=== PATIENT | female | born 1980 | race African-American/Black ===

== ENCOUNTER 2020-06-09 13:12 | Emergency (ER) | payer OTHER, SELFPAY ==
[2020-06-09 13:15] VITALS: BP 112/62; PULSE 79; TEMP 36.5; O2SAT 100
--- NOTE | 2020-06-09 13:21 | ED.GENADUL_ITS ---
Discharge Plan Disposition Patient Disposition: HOME Condition: Improving Discharge Details Chief Complaint: SutureRem Clinical Impression: Visit for suture removal Primary Care Provider: Jayesh Helms ED Provider: Alvin Oscar Discharge Instructions Additional Instructions: Daily soap and water, pat dry and replace bandage for the next 7 days time. Return to the ER for any acute concerns Medical Decision Making Otherwise healthy 39-year-old female presents for suture removal from right index finger after laceration repair performed May 26. No signs of bacterial infection. Sutures removed uneventfully, normal radiographs, she is stable for discharge HPI General Mode of arrival: ambulatory . Date/Time Provider Initiated Documentation: 06/09/20 13:15 . Limitations to Documentation: no limitations . Information obtained by: patient . History of Present Illness 39 year old F presents to the emergency department with the chief complaint of Suture removal, no other complaint, General Stated Complaint: SutureRem ORAL: 5 Review of Systems Narrative: no Fever/discharge PFSH Social History Smoking/Tobacco Use Status: Never Smoking risk assessment performed?: Yes Do you feel safe at home: Yes Do you feel safe in your relationship?: Yes Exam Narrative Exam Narrative: GEN: awake, alert, oriented 3. Pleasant, well groomed, interactive. HEAD: Normocephalic, atraumatic EXT: Full ROM, next finger with sutures in place, healing laceration. Neuro: Grossly normal neurologic exam, conversant, interactive. Psych: Speech fluent, thoughts congruent, affect normal Course Vital Signs Vital signs: Vital Signs Temperature 36.5 C 06/09/20 13:15 Pulse 79 06/09/20 13:15 Blood Pressure 112/62 06/09/20 13:15 Pulse Oximetry 100 06/09/20 13:15 Temperature 36.5 C 06/09/20 13:15 Temperature Source Temporal Artery Scan 06/09/20 13:15 Pulse 79 06/09/20 13:15 Respiratory Effort Non-Labored 06/09/20 13:17 Blood Pressure 112/62 06/09/20 13:15 Blood Pressure Position Sitting 06/09/20 13:15 Pulse Oximetry 100 06/09/20 13:15 Oxygen Delivery Method Room Air 06/09/20 13:15 Oxygen Flow Rate 0 06/09/20 13:15 Pain Level 0 06/09/20 13:15
== END 2020-06-09 13:23 | disposition home or self-care (01) ==
PROVIDERS: Emergency Provider Emergency Medicine; PCP Nurse Practitioner Family
DX: S61.210D Laceration without foreign body of right index finger without damage to nail, subsequent encounter (principal); W26.8XXD Contact with other sharp object(s), not elsewhere classified, subsequent encounter; Z48.02 Encounter for removal of sutures
CPT/HCPCS: 99282

== ENCOUNTER 2020-07-09 11:50 | Emergency (ER) | payer OTHER, SELFPAY ==
[2020-07-09] VITALS (22 sets, daily range): BP systolic 102–133; BP diastolic 66–81; PULSE 67–97; RESP 11–20; TEMP 36.3; O2SAT 98–100
--- NOTE | 2020-07-09 12:05 | ED.GENADUL_ITS ---
Discharge Plan Disposition Patient Disposition: HOME Condition: Stable Discharge Details Clinical Impression: Sensation of swollen throat Primary Care Provider: Jayesh Helms ED Provider: Doc Presley Home Meds and New Rx's Prescriptions: New prednisone 20 mg tablet 60 mg PO DAILY 5 Days Qty: 15 RF: 0 epinephrine 0.3 mg/0.3 mL auto-injector 0.3 mg IM Q5-15M PRN (Reason: anaphylaxis) Qty: 2 RF: 0 Continued montelukast 10 mg tablet RF: 0 Discharge Instructions Additional Instructions: Your exam and vital signs were stable during your observation here, this is unlikely anaphylaxis if you develop difficulty breathing, abdominal pain, chest pain, vomit or worsening swelling sensation return to the emergency department and use your epi pen Medical Decision Making 39 yo female who has a hx of asthma comes in with feeling as though her throat is swelling. She states she got her second covid19 vaccine around 1120 this morning then after this started to feel a scratchy throat and voice didn't sound like it normally does so came here. States she feels as though there is a lump in the throat. Denies abdominal pain, dyspnea, n/v, chest pain. She has normal posterior pharynx, clear lungs, speaking in full sentences without visible swelling. Given her complaints of feeling swelling in the throat after the vaccine concern for possible anaphylaxis even though she has no diffuse rash, will tx with im epi, benadryl, steroids and famotidine and monitor. pt declined epi and benadryl as well as steroids. She was observed for over an hour and no worsening symptoms and swelling sensation improved, stable exam without drooling and speaking in full sentences. Will d/c with prescriptions for epi pen to have if needed and prednisone and return precautions given Differential Diagnosis Differential Diagnosis: allergic reaction, anaphylaxis HPI General Mode of arrival: ambulatory . Date/Time Provider Initiated Documentation: 07/09/20 11:52 . Limitations to Documentation: no limitations . Information obtained by: patient . History of Present Illness 39 year old F presents to the emergency department with the chief complaint of feels throat swelling, described as moderate, Patient started experiencing this minute(s) (30) and it has been constant. No relieving factors improve symptom(s), No exacerbating factors reported . Patient notes no other symptoms.. Patient did receive the following treatments prior to arrival, none Related Data Home Medications Medication Instructions Recorded Confirmed epinephrine 0.3 mg IM Q5-15M PRN #2 ea 07/09/20 montelukast mg 07/09/20 07/09/20 prednisone 60 mg PO DAILY 5 Days #15 tab 07/09/20 Previous Rx's Medication Instructions Recorded epinephrine 0.3 mg IM Q5-15M PRN #2 ea 07/09/20 prednisone 60 mg PO DAILY 5 Days #15 tab 07/09/20 Allergies Allergy/AdvReac Type Severity Reaction Status Date / Time bee venom protein (honey bee) Allergy Intermediate localized Verified 07/09/20 11:15 swelling/infection diphtheria,pertussis AdvReac Intermediate localized Verified 07/09/20 11:15 (acellular),te swelling [From Boostrix Tdap] and decreased mobility in arm General Stated Complaint: Allergic ORAL: 3 Review of Systems All systems reviewed & are unremarkable except as noted in HPI and below Constitutional Constitutional: Denies chills and Denies fever(s) Cardiovascular Cardiovascular: Denies chest pain and Denies dyspnea Respiratory Respiratory: Denies cough and Denies dyspnea Gastrointestinal Gastrointestinal: Denies abdominal pain, Denies nausea and Denies vomiting [facility] Social History Smoking/Tobacco Use Status: Never Smoking risk assessment performed?: Yes Drug use: Never Substance use type: does not use Do you feel safe at home: Yes Do you feel safe in your relationship?: Yes Exam Const General: no acute distress Orientation: alert HENMT Head: normal to inspection Ears: external ears normal General nose exam: external nose normal Mouth: moist mucous membranes Eyes General: appearance normal, both eyes and all related structures Neck Neck: normal visual inspection Resp Effort & Inspection: normal respiratory effort and able to speak in complete sentences Cardio Rate: regular rate Skin General skin exam: no rashes or lesions noted Neuro General: patient alert and patient oriented x3 Extrem General: normal to inspection Psych Mental Status: mental status grossly normal Course Vital Signs Vital signs: Vital Signs Temperature 36.3 C L 07/09/20 11:55 Pulse 87 07/09/20 11:55 Respiratory Rate 18 07/09/20 11:55 Blood Pressure 133/73 07/09/20 11:55 Pulse Oximetry 100 07/09/20 11:55 Temperature 36.3 C L 07/09/20 11:55 Pulse 87 07/09/20 11:55 Respiratory Rate 18 07/09/20 11:55 Respiratory Effort Non-Labored 07/09/20 12:00 Blood Pressure 133/73 07/09/20 11:55 Blood Pressure Position Sitting 07/09/20 11:55 Pulse Oximetry 100 07/09/20 11:55 Oxygen Delivery Method Room Air 07/09/20 11:55 Oxygen Flow Rate 0 07/09/20 11:55 Pain Level 0 07/09/20 11:55
[2020-07-09] MEDS: FAMOTIDINE 20 MG/50 ML BAG 200 MG IVPB (12:26)
[2020-07-09] MEDS: methylPREDNISolone SUCC 125 MG VIAL IVP (12:26)
== END 2020-07-09 13:52 | disposition home or self-care (01) ==
PROVIDERS: Emergency Provider Emergency Medicine; PCP Nurse Practitioner Family
DX: R09.89 Other specified symptoms and signs involving the circulatory and respiratory systems (principal); T50.Z95A Adverse effect of other vaccines and biological substances, initial encounter; J45.909 Unspecified asthma, uncomplicated
CPT/HCPCS: 96374; 96375; 99284; J2930

== ENCOUNTER 2022-05-18 20:33 | Emergency (ER) | payer OTHER, MEDICAID, SELFPAY ==
[2022-05-18 20:37] VITALS: BP 121/74; PULSE 77; RESP 16; TEMP 36.6; O2SAT 100
[2022-05-18] MEDS: Albuterol/Ipratropium 3 ML UPD VIAL UPD (21:23)
[2022-05-18 21:41] LABS: COVID-19 PCR Negative (Negative); Influenza A PCR Negative (Negative); Influenza B PCR Negative (Negative)
[2022-05-18 21:46] LABS: RSV PCR Positive (Negative); Source Nasopharynx
[2022-05-18] MEDS: Budesonide 0.25 MG/2 ML UPD VIAL UPD (22:00)
--- NOTE | 2022-05-18 22:37 | ED.GENADUL_ITS ---
Discharge Plan Disposition Patient Disposition: Home Condition: Stable Discharge Details Clinical Impression: Respiratory syncytial virus (RSV) infection Primary Care Provider: Jayesh Helms ED Provider: Deng Fabian Home Meds and New Rx's Prescriptions: New benzonatate 200 mg capsule 200 mg PO TID PRN (Reason: cough) Qty: 30 0RF prednisone 20 mg tablet 40 mg PO DAILY Qty: 6 0RF Continued montelukast 10 mg tablet 10 mg PO DAILY Label Comments: TAKE 1 TABLET BY MOUTH ONCE DAILY. epinephrine 0.3 mg/0.3 mL auto-injector 0.3 mg IM Q5-15M PRN (Reason: anaphylaxis) Qty: 2 0RF Rx Instructions: do not exceed 3 doses per episode loratadine 10 mg Tablet 10 mg PO DAILY budesonide-formoterol 160-4.5 mcg/actuation HFA aerosol inhaler 2 inh INHALATION BID Label Comments: INHALE 2 PUFFS BY MOUTH TWICE DAILY Trulance 3 mg tablet 3 mg PO Label Comments: TAKE 1 TABLET BY MOUTH ONCE DAILY fluticasone propionate 50 mcg/actuation spray,suspension 2 spray INTRANASAL BID Label Comments: INSTILL 1 SPRAY IN EACH NOSTRIL DAILY Discharge Instructions Instructions: Respiratory Syncytial Virus (ED) Additional Instructions: Please continue to monitor symptoms and return to the emergency department for any new or significant worsening of your condition. Take steroids starting tomorrow morning and continue with your typical medications for your asthma. If you do not see signs of improvement in the next 5 days please follow-up with your primary care provider for reassessment and further testing or treatment as needed. Referrals: Jayesh Helms [Primary Care Provider] - (If not improving) Discharge Data Discharge Date/Time-TO BE ENTERED AT DEPARTURE: 05/18/22 22:51 Medical Decision Making Patient presenting to the emergency department for chief complaint of cough and chest tightness. Patient has history of severe asthma and has been taking nebulizers. Physical exam shows diminished lung sounds with very subtle wheeze, no hypoxia, no tachycardia and otherwise unremarkable exam. Patient states that he is unable to feel her Pulmicort due to availability at the pharmacy. I do not feel that patient requires imaging or lab work-up at this time but will perform viral pathogen panel and give DuoNeb, Pulmicort, and prednisone initial dose. Viral pathogen panel is positive for RSV. Given the duration of the illness has only been 4 days, patient did have improvement of lung sounds and symptoms after nebs and is RSV positive and I doubt pneumonia at this time and highly suspicious of viral illness with exacerbation of patient's baseline asthma. Will prescribe patient Tessalon Perles and prednisone burst and will encourage patient to monitor symptoms. Did discuss RSV with patient and do not feel that antibiotics are needed or necessary at this time. After discussion of diagnosis and plan of care patient has no further needs, questions, or concerns and states clear understanding to return to the emergency department for any worsening symptoms. This documentation was generated using [employer] system, please disregard any oddities of phrase or misspellings. Lab Data Lab results reviewed: Yes I reviewed the patient's lab results. Sign Out No HPI General Mode of arrival: ambulatory . Date/Time Provider Initiated Documentation: 05/18/22 20:48 . Limitations to Documentation: no limitations . Information obtained by: patient and RN notes reviewed . History of Present Illness 41 year old F presents to the emergency department with the chief complaint of cough chest tightness, described as moderate, Quality is described as other (tightness), and is localized to the chest. Patient started experiencing this day(s) (4) and it has been constant. No relieving factors improve symptom(s), No exacerbating factors reported . Related Data Home Medications Medication Instructions Recorded Confirmed epinephrine 0.3 mg/0.3 mL 0.3 mg (0.3 mL) IM Q5-15M PRN 07/09/20 05/21/22 injection, auto-injector anaphylaxis #2 ea montelukast 10 mg tablet 10 mg PO DAILY 07/09/20 05/21/22 benzonatate 200 mg capsule 200 mg PO TID PRN cough #30 caps 05/18/22 05/21/22 budesonide-formoterol HFA 160 2 inh inhalation BID 05/18/22 05/21/22 mcg-4.5 mcg/actuation aerosol inhaler fluticasone propionate 50 2 spray intranasal BID 05/18/22 05/21/22 mcg/actuation nasal spray,suspension loratadine 10 mg tablet 10 mg PO DAILY 05/18/22 05/21/22 plecanatide 3 mg tablet (Trulance) 3 mg PO 05/18/22 prednisone 20 mg tablet 40 mg PO DAILY #6 tabs 05/18/22 05/21/22 Previous Rx's Medication Instructions Recorded epinephrine 0.3 mg/0.3 mL 0.3 mg (0.3 mL) IM Q5-15M PRN 07/09/20 injection, auto-injector anaphylaxis #2 ea benzonatate 200 mg capsule 200 mg PO TID PRN cough #30 caps 05/18/22 prednisone 20 mg tablet 40 mg PO DAILY #6 tabs 05/18/22 Allergies Allergy/AdvReac Type Severity Reaction Status Date / Time bee venom protein (honey bee) Allergy Intermediate localized Verified 05/21/22 11:00 swelling/infection diphtheria,pertussis AdvReac Intermediate localized Verified 05/21/22 11:00 (acellular),te swelling [From Boostrix Tdap] and decreased mobility in arm seasonal Allergy Uncoded 05/21/22 11:00 General Stated Complaint: RespSymp ORAL: 3 Review of Systems Constitutional Constitutional: Reports chills, Denies headache(s), Reports lethargy and Reports malaise ENT Ears, Nose, Mouth, and Throat: Denies headache(s), Reports nasal congestion and Denies sore throat Cardiovascular Cardiovascular: Denies chest pain and Reports dyspnea Respiratory Respiratory: Reports chest congestion, Reports cough, Reports dyspnea and Reports wheezing Gastrointestinal Gastrointestinal: Reports system reviewed and no additional complaints, except as documented Integumentary/Breasts Skin/Breast: Denies rash Neurologic Neurologic: Denies headache(s) Allergic/Immunologic Allergic/Immunologic: Reports wheezing PFSH All Active Problems (Updated 05/21/22 @ 14:59 by SOPHIA Yang) Respiratory syncytial virus (RSV) infection (Acute) Encounter for screening for other viral diseases (Acute) Social History Smoking/Tobacco Use Status: Never Smoking risk assessment performed?: Yes Drug use: Never Substance use type: does not use Do you feel safe at home: Yes Do you feel safe in your relationship?: Yes Exam Const General: cooperative, comfortable and no acute distress Orientation: alert and awake [facility] Head: normal to inspection, normocephalic and atraumatic Ears: hearing grossly normal bilaterally and TM's normal bilaterally General nose exam: external nose normal Face and sinus: no erythema Mouth: oral mucosae normal, no drooling, no muffled voice and no trismus Throat: posterior oropharynx normal Neck Neck: normal visual inspection, full ROM, no lymphadenopathy, no meningeal signs, trachea midline and supple Resp Effort & Inspection: normal respiratory effort, able to speak in complete sentences and cough Quality of cough: dry Auscultation: diminished lung sounds and wheezes scattered wheezes Cardio Rate: regular rate Rhythm: regular rhythm Heart Sounds: S1 normal, S2 normal, no gallops, no murmurs and no rubs Skin General skin exam: no rashes or lesions noted and dry skin (warm) Neuro General: patient alert, patient awake, patient oriented x3, gait normal and moves all extremities Cognition: normal cognition Speech: speech normal Course Vital Signs Vital signs: Vital Signs Temperature 36.6 C 05/18/22 20:37 Pulse 77 05/18/22 20:37 Respiratory Rate 16 05/18/22 20:37 Blood Pressure 121/74 05/18/22 20:37 Pulse Oximetry 100 05/18/22 20:37 Temperature 36.6 C 05/18/22 20:37 Temperature Source Oral 05/18/22 20:37 Pulse 77 05/18/22 20:37 Respiratory Rate 16 05/18/22 20:37 Respiratory Effort 05/18/22 20:46 Respiratory Depth Normal 05/18/22 20:46 Blood Pressure 121/74 05/18/22 20:37 Blood Pressure Position Sitting 05/18/22 20:37 Pulse Oximetry 100 05/18/22 20:37 Oxygen Delivery Method Room Air 05/18/22 20:37 Oxygen Flow Rate 0 05/18/22 20:37 Pain Level 0 05/18/22 20:37 Lab/Test Results Lab/Test Results: Laboratory Tests Range/Units 05/18/22 21:00 COVID-19 Source Nasopharynx SARS-CoV-2 (PCR) (Negative) Negative Influenza Type A (PCR) (Negative) Negative Influenza Type B (PCR) (Negative) Negative RSV (PCR) (Negative) Positive A*
[2022-05-18 22:47] VITALS: BP 116/65; PULSE 91; RESP 16; TEMP 36.6; O2SAT 100
[2022-05-18] MEDS: predniSONE 20 MG TAB 40 MG PO (22:47)
== END 2022-05-18 22:51 | disposition home or self-care (01) ==
PROVIDERS: Emergency Provider Nurse Practitioner Family; PCP Nurse Practitioner Family
DX: J98.8 Other specified respiratory disorders (principal); B97.4 Respiratory syncytial virus as the cause of diseases classified elsewhere; J45.909 Unspecified asthma, uncomplicated; Z20.822 Contact with and (suspected) exposure to COVID-19; Z79.51 Long term (current) use of inhaled steroids
CPT/HCPCS: 87637; 94640; 99284; J7512; J7620; J7633

== ENCOUNTER 2022-05-21 10:52 | Emergency (ER) | payer OTHER, MEDICAID, SELFPAY ==
[2022-05-21 10:57] VITALS: BP 134/70; PULSE 92; RESP 18; TEMP 37; O2SAT 100
--- NOTE | 2022-05-21 11:00 | RT.EKG_ITS ---
APPROVED REPORT Exam: Resting ECG Reason for Exam: chest pressure Patient Location: E HR:88 bpm ECG Measurements Heart Rate 88 AXIS CO 156 P 43 QRSd 75 QRS 56 QT 357 T 50 QTc 433 Conclusion Sinus rhythm...normal P axis, V-rate 60- 99
--- NOTE | 2022-05-21 13:00 | DI.RAD_ITS ---
Exam(s) XR CHEST 2V PA LATERAL EXAM: XR CHEST 2V PA LATERAL CLINICAL HISTORY: cough, rsv + TECHNIQUE: 2D digital imaging was performed of the chest. Two images were obtained. PA and lateral views were obtained. COMPARISON: No exams were available for comparison FINDINGS: MEDIASTINUM: Normal. HEART: Normal. PULMONARY VASCULATURE: Normal. LUNGS: Clear. PLEURAL SPACE: No pleural effusion or pneumothorax. BONE:Within normal limits for the patient's age. OTHER FINDINGS:Normal. IMPRESSION: No acute pulmonary findings. DATA REPOSITORY: RADIATION DOSE DELIVERED:
--- NOTE | 2022-05-21 13:13 | ED.GENADUL_ITS ---
Discharge Plan Disposition Patient Disposition: Home Condition: Stable Discharge Details Clinical Impression: Respiratory syncytial virus (RSV) infection Primary Care Provider: Jayesh Helms ED Provider: Mono Fletcher Home Meds and New Rx's Prescriptions: Continued montelukast 10 mg tablet 10 mg PO DAILY Label Comments: TAKE 1 TABLET BY MOUTH ONCE DAILY. epinephrine 0.3 mg/0.3 mL auto-injector 0.3 mg IM Q5-15M PRN (Reason: anaphylaxis) Qty: 2 0RF Rx Instructions: do not exceed 3 doses per episode loratadine 10 mg Tablet 10 mg PO DAILY budesonide-formoterol 160-4.5 mcg/actuation HFA aerosol inhaler 2 inh INHALATION BID Label Comments: INHALE 2 PUFFS BY MOUTH TWICE DAILY Trulance 3 mg tablet 3 mg PO Label Comments: TAKE 1 TABLET BY MOUTH ONCE DAILY fluticasone propionate 50 mcg/actuation spray,suspension 2 spray INTRANASAL BID Label Comments: INSTILL 1 SPRAY IN EACH NOSTRIL DAILY benzonatate 200 mg capsule 200 mg PO TID PRN (Reason: cough) Qty: 30 0RF prednisone 20 mg tablet 40 mg PO DAILY Qty: 6 0RF Discharge Instructions Instructions: Respiratory Syncytial Virus (ED) Additional Instructions: Chest x-ray is unremarkable. I have extended your steroid burst by 1 day. You may also use your DuoNeb at home every 4-6 hours rather than simply your albuterol. Please watch for new or worsening symptoms and return to the ER for any concerns. Lastly, please follow-up with your primary care provider and discuss where your referral to pulmonology stands as I believe he will benefit from seeing pulmonology. Stand Alone Forms: Work Release Discharge Data Discharge Date/Time-TO BE ENTERED AT DEPARTURE: 05/21/22 15:11 Medical Decision Making 41-year-old female, non-smoker, pathological history of asthma, developed URI- like symptoms 6 days ago, seen in the ER and diagnosed with RSV. Started on a 4-day prednisone burst and Tessalon Perles. Per protocol, EKG was obtained prior to my assessment given she complained of chest tightness. Extremely low suspicion for cardiac etiology here. Presents to the ER for continuation of cough, chest tightness, shortness of breath. Clinically she appears well, nontoxic, afebrile, heart rate in the 90s, O2 sat 100% on room air. Lungs are slightly diminished at the bases but otherwise unremarkable. Based upon her presentation, recent diagnosed with RSV, likely viral etiology and exacerbated by her baseline asthma. I do believe adding on an additional day of steroid burst dose is reasonable. Also plan to obtain x-ray today to rule out a superimposed pneumonia. Based upon her presentation low suspicion for pneumonia. Also very low suspicion for PE. Patient is frustrated as she simply feels as though she cannot take a deep breath. Given her frustration I have asked Dr. Horton to personally evaluate the patient as well. Dr. Horton personally evaluated patient, please see his note. Chest x-ray unremarkable. Discussed findings with patient. Plan to add a single day to her steroid burst, she will begin using her DuoNeb as opposed to albuterol at home consistently, and she is in the process of being referred to pulmonology through her PCP. Standard discharge and return precautions were provided. Patient understands, is agreeable to this plan, and has no additional questions or concerns upon discharge. This documentation was generated using Liquiteriaation system, please disregard any oddities of phrase or misspellings. Medical Records Medical records reviewed: Yes I reviewed the patient's medical records. Imaging Data Radiologic Study: Attestation: I personally reviewed and interpreted this imaging study as follows: Imaging: X-Ray Radiologist's impression: Exam(s) XR CHEST 2V PA LATERAL EXAM: XR CHEST 2V PA LATERAL CLINICAL HISTORY: cough, rsv + TECHNIQUE: 2D digital imaging was performed of the chest. Two images were obtained. PA and lateral views were obtained. COMPARISON: No exams were available for comparison FINDINGS: MEDIASTINUM: Normal. HEART: Normal. PULMONARY VASCULATURE: Normal. LUNGS: Clear. PLEURAL SPACE: No pleural effusion or pneumothorax. BONE:Within normal limits for the patient's age. OTHER FINDINGS:Normal. IMPRESSION: No acute pulmonary findings. ECG Data Attestation: I personally reviewed and interpreted this ECG (s) as follows: Interpretation: Sinus rhythm, ventricular rate 88, no STEMI. HPI General Mode of arrival: ambulatory . Date/Time Provider Initiated Documentation: 05/21/22 11:17 . Limitations to Documentation: no limitations . Information obtained by: patient . HPI Narrative: This is a 41-year-old female, past medical history of asthma, non-smoker, vaccinated, presenting to the ER for evaluation of URI-like symptoms that began 6 days ago, diagnosed with RSV on 05-18-2022, reports symptoms are worsening, cannot take a deep breath. Patient reports productive cough, chest tightness, shortness of breath. Has been taking all of her normal asthma treatments as directed including her nebs at home. 2 days ago was prescribed prednisone and Tessalon Perles, taking with no relief. Denies fever, chest pain, pain or swe lling her legs. Patient reports that she simply cannot take a deep breath. Does not feel as though she can work in her current state of health. Is in the process of being referred to pulmonology by her PCP. Patient reports that she did have COVID twice in the last half of the year and feels as though she has never fully recovered. Related Data Home Medications Medication Instructions Recorded Confirmed epinephrine 0.3 mg/0.3 mL 0.3 mg (0.3 mL) IM Q5-15M PRN 07/09/20 05/21/22 injection, auto-injector anaphylaxis #2 ea montelukast 10 mg tablet 10 mg PO DAILY 07/09/20 05/21/22 benzonatate 200 mg capsule 200 mg PO TID PRN cough #30 caps 05/18/22 05/21/22 budesonide-formoterol HFA 160 2 inh inhalation BID 05/18/22 05/21/22 mcg-4.5 mcg/actuation aerosol inhaler fluticasone propionate 50 2 spray intranasal BID 05/18/22 05/21/22 mcg/actuation nasal spray,suspension loratadine 10 mg tablet 10 mg PO DAILY 05/18/22 05/21/22 plecanatide 3 mg tablet (Trulance) 3 mg PO 05/18/22 prednisone 20 mg tablet 40 mg PO DAILY #6 tabs 05/18/22 05/21/22 Previous Rx's Medication Instructions Recorded epinephrine 0.3 mg/0.3 mL 0.3 mg (0.3 mL) IM Q5-15M PRN 07/09/20 injection, auto-injector anaphylaxis #2 ea benzonatate 200 mg capsule 200 mg PO TID PRN cough #30 caps 05/18/22 prednisone 20 mg tablet 40 mg PO DAILY #6 tabs 05/18/22 Allergies Allergy/AdvReac Type Severity Reaction Status Date / Time bee venom protein (honey bee) Allergy Intermediate localized Verified 05/21/22 11:00 swelling/infection diphtheria,pertussis AdvReac Intermediate localized Verified 05/21/22 11:00 (acellular),te swelling [From Boostrix Tdap] and decreased mobility in arm seasonal Allergy Uncoded 05/21/22 11:00 General Stated Complaint: RespSymp ORAL: 3 Review of Systems Constitutional Constitutional: Denies fever(s) Cardiovascular Cardiovascular: Denies chest pain and Reports dyspnea Respiratory Respiratory: Reports cough and Reports dyspnea PFSH All Active Problems (Updated 05/21/22 @ 14:59 by SOPHIA Yang) Respiratory syncytial virus (RSV) infection (Acute) Encounter for screening for other viral diseases (Acute) Social History Smoking/Tobacco Use Status: Never Smoking risk assessment performed?: Yes Drug use: Never Substance use type: does not use Do you feel safe at home: Yes Do you feel safe in your relationship?: Yes Exam Const General: cooperative, healthy appearing, comfortable and no acute distress Orientation: alert and awake [facility] Head: normal to inspection, normocephalic and atraumatic Eyes Conjunctivae: conjunctivae normal Neck Neck: normal visual inspection, full ROM, trachea midline and supple Resp Effort & Inspection: normal respiratory effort and able to speak in complete sentences Auscultation: diminished lung sounds bilaterally (Minimally) Cardio Rate: regular rate Rhythm: regular rhythm Skin General skin exam: no rashes or lesions noted Neuro General: patient alert, patient awake, moves all extremities and no focal motor deficits Cognition: normal cognition Speech: speech normal Gait: normal gait Sensory Exam: no sensory deficits noted Psych Appearance: grossly normal Mental Status: mental status grossly normal Course Vital Signs Vital signs: Vital Signs Temperature 37.0 C 05/21/22 10:57 Pulse 92 H 05/21/22 10:57 Respiratory Rate 18 05/21/22 10:57 Blood Pressure 134/70 05/21/22 10:57 Pulse Oximetry 100 05/21/22 10:57 Temperature 37.0 C 05/21/22 10:57 Temperature Source Temporal Artery Scan 05/21/22 10:57 Pulse 92 H 05/21/22 10:57 Respiratory Rate 18 05/21/22 10:57 Respiratory Effort 05/21/22 12:35 Respiratory Depth Normal 12/15/22 12:35 Blood Pressure 134/70 05/21/22 10:57 Blood Pressure Position Sitting 05/21/22 10:57 Pulse Oximetry 100 05/21/22 10:57 Oxygen Delivery Method Room Air 05/21/22 10:57 Oxygen Flow Rate 0 05/21/22 10:57
[2022-05-21 14:36] VITALS: BP 110/69; PULSE 88; TEMP 37; O2SAT 97
[2022-05-21] MEDS: predniSONE 20 MG TAB 40 MG PO (15:12)
== END 2022-05-21 15:11 | disposition home or self-care (01) ==
PROVIDERS: Emergency Provider Physician Assistant; PCP Nurse Practitioner Family
DX: R07.89 Other chest pain (principal); B97.4 Respiratory syncytial virus as the cause of diseases classified elsewhere; J45.909 Unspecified asthma, uncomplicated
CPT/HCPCS: 93005; 99284; 71046; 93010; J7512

== ENCOUNTER 2022-07-13 06:03 | Emergency (ER) | payer OTHER, MEDICAID, SELFPAY ==
[2022-07-13] VITALS (14 sets, daily range): BP systolic 71–124; BP diastolic 48–74; PULSE 74–86; RESP 18–22; TEMP 36.8; O2SAT 97–100
--- NOTE | 2022-07-13 06:17 | ED.GENADUL_ITS ---
Discharge Plan Disposition Patient Disposition: Home Condition: Good Discharge Details Clinical Impression: Encounter for screening for other viral diseases Primary Care Provider: Jayesh Helms ED Provider: Helen Cano Home Meds and New Rx's Prescriptions: New prednisone 50 mg tablet 50 mg PO DAILY Qty: 4 0RF Continued ibuprofen [IBU] 800 mg tablet 800 mg PO Q8H PRN montelukast 10 mg tablet 10 mg PO DAILY Label Comments: TAKE 1 TABLET BY MOUTH ONCE DAILY. epinephrine 0.3 mg/0.3 mL auto-injector 0.3 mg IM Q5-15M PRN (Reason: anaphylaxis) Qty: 2 0RF Rx Instructions: do not exceed 3 doses per episode loratadine 10 mg Tablet 10 mg PO DAILY budesonide-formoterol 160-4.5 mcg/actuation HFA aerosol inhaler 2 inh INHALATION BID Label Comments: INHALE 2 PUFFS BY MOUTH TWICE DAILY Trulance 3 mg tablet 3 mg PO DAILY Label Comments: TAKE 1 TABLET BY MOUTH ONCE DAILY fluticasone propionate 50 mcg/actuation spray,suspension 2 spray INTRANASAL BID Label Comments: INSTILL 1 SPRAY IN EACH NOSTRIL DAILY Discharge Instructions Instructions: Postnasal Drip (DC) Additional Instructions: At this time your COVID/flu/RSV is negative. Your chest x-ray is negative. After discussion with you and Dr. Cano, we have elected to progress with a short course of steroids. This was been sent to your pharmacy on file. Please follow-up closely with your accredited legal secretary Dr. Janet Mancia. Continue to take your inhalers as directed. If you notice any worsening of your symptoms, or any new symptoms such as vomiting, diarrhea, fever, chills, shortness of breath, chest pain, numbness, weakness, or fainting , please return immediately to the emergency department for reevaluation. Please follow up with your primary care provider as soon as possible for reassessment and reevaluation. As always, it was a pleasure participating in your medical care today. Referrals: Janet Cardenas MD [ [facility] STAFF PHYSICIAN] - Medical Decision Making <Helen Cano DO - Last Filed: 07/13/22 07:34> 0615 -- 41-year-old female with a history of asthma, allergic rhinitis, irritable bowel syndrome, post-COVID syndrome and hysterectomy presents for 2 days of sore throat, productive cough and shortness of breath. States she has never fully recovered after developing COVID twice and RSV once within the past year and has had chronic sensation of difficulty taking a deep breath. This has been worse since her symptoms started 2 days ago. Vitals within normal limits. Patient is speaking full sentences and shows no signs of respiratory distress. She has mild cobblestoning noted in posterior oropharynx but no exudates, erythema or edema or peritonsillar mass. She has no cervical lymphadenopathy. She has no drooling, trismus or submandibular swelling. Her lungs are clear throughout without wheezing or rhonchi and her oxygen saturation is 99% on room air. History and presentation does not appear consistent with strep pharyngitis or PE. She has no report of green nasal discharge, facial pain or fever, history of presentation does not appear consistent with sinusitis at this time. Suspect viral URI with postnasal drip causing the sore throat. Also consider COVID, RSV, bronchitis or pneumonia. Rapid strep done on arrival and negative. Will obtain a fluvid, chest x-ray and give a dose of motrin, decadron, duoneb and reassess. 0705 -- chest x-ray negative. Patient reassessed and she feels somewhat better after DuoNeb. Oxygen saturation 100% just after duoneb. Repeat lung exam notes improved breath sounds throughout without wheezing or rhonchi. Fluvid still pending and pt would like to wait for results. 0730 -- Case endorsed to Dr. Moulton to reassess if pt needs another duoneb and follow up on Fluvid results. Consider short steroid course upon discharge. Medical Records Medical records reviewed: Yes I reviewed the patient's medical records. <Claude Moulton, DO - Last Filed: 07/13/22 07:57> 0615 -- 41-year-old female with a history of asthma, allergic rhinitis, irritable bowel syndrome, post-COVID syndrome and hysterectomy presents for 2 days of sore throat, productive cough and shortness of breath. States she has never fully recovered after developing COVID twice and RSV once within the past year and has had chronic sensation of difficulty taking a deep breath. This has been worse since her symptoms started 2 days ago. Vitals within normal limits. Patient is speaking full sentences and shows no signs of respiratory distress. She has mild cobblestoning noted in posterior oropharynx but no exudates, erythema or edema or peritonsillar mass. She has no cervical lymphadenopathy. She has no drooling, trismus or submandibular swelling. Her lungs are clear throughout without wheezing or rhonchi and her oxygen saturation is 99% on room air. History and presentation does not appear consistent with strep pharyngitis or PE. She has no report of green nasal discharge, facial pain or fever, history of presentation does not appear consistent with sinusitis at this time. Suspect viral URI with postnasal drip causing the sore throat. Also consider COVID, RSV, bronchitis or pneumonia. Rapid strep done on arrival and negative. Will obtain a fluvid, chest x-ray and give a dose of motrin, decadron, duoneb and reassess. 704 -- chest x-ray negative. Patient reassessed and she feels somewhat better after DuoNeb. Oxygen saturation 100% just after duoneb. Repeat lung exam notes improved breath sounds throughout without wheezing or rhonchi. Fluvid still pending and pt would like to wait for results. 729 -- Case endorsed to Dr. Moulton to reassess if pt needs another duoneb and follow up on Fluvid results. Consider short steroid course upon discharge. Dr. Nicholson's documentation 7:56 AM Patient was signed out to me by colleague Dr. Eze Thompson. Please refer to HPI, physical exam, assessment and plan. At time of signout we are pending COVID/flu/RSV results. Chest x-ray results are returned negative per virtual radiology. On reassessment patient appears well. No hypoxemia, no tachycardia. Lung sounds show no wheeze. COVID flu and RSV are negative. Symptoms at this time appear consistent with a viral upper respiratory infection. Dr. Cano and Maria Ines felt that a short course of steroids has been beneficial in the past may be beneficial now. On my assessment I do feel that this is reasonable. We will start her on 4 additional days of prednisone. She does have follow-up with Dr. Janet Mancia to pulmonology in 2 days on Wednesday. Will recommend continued follow-up with us. I have extensively reviewed the treatment plan and discharge instructions with the patient. I have addressed all patient concerns at this time. The patient was made aware of what symptoms to monitor for that would warrant a return to the emergency department. Discussed the plan with the patient, they demonstrate verbal understanding and agreement with our assessment and plan at this time. The documentation in this chart was dictated using [employer] dictation software. Please excuse any dictation errors. HPI <Helen Cano, DO - Last Filed: 07/13/22 07:34> General Mode of arrival: ambulatory . Date/Time Provider Initiated Documentation: 07/13/22 06:13 . Limitations to Documentation: no limitations . Information obtained by: patient . HPI Narrative: Patient is a 41-year-old female with a history of asthma, allergic rhinitis, irritable bowel syndrome and post-COVID syndrome presents for sore throat, cough and shortness of breath for the past 2 days. Patient states she first started with fatigue 3 days ago and then developed sore throat 2 days ago. She states since then she has developed cough productive with yellow sputum and a sensation of difficulty taking a deep breath. Patient states she has been taking Tylenol Sinus and using her budesonide and DuoNebs at home with temporary relief. She denies any known fever, nasal congestion, runny nose, ear pain. Patient states she was diagnosed with COVID twice last year, once in June 2021 and once in January 26 and states she never fully recovered and had chronic sensation of difficulty taking a deep breath since then. She states her symptoms worsened even more when diagnosed with RSV in April 2022. She states she never fully recovered from that either and has had even worsening difficulty in taking a deep breath since then. She states the symptoms have worsened since these new URI symptoms started 2 days ago. Patient states she is scheduled to see Dr. Mancia on Wednesday with plan for a possible CT chest and PFT. Related Data Home Medications Medication Instructions Recorded Confirmed epinephrine 0.3 mg/0.3 mL 0.3 mg (0.3 mL) IM Q5-15M PRN 07/09/20 07/13/22 injection, auto-injector anaphylaxis #2 ea montelukast 10 mg tablet 10 mg PO DAILY 07/09/20 07/13/22 budesonide-formoterol HFA 160 2 inh inhalation BID 05/18/22 07/13/22 mcg-4.5 mcg/actuation aerosol inhaler fluticasone propionate 50 2 spray intranasal BID 05/18/22 07/13/22 mcg/actuation nasal spray,suspension loratadine 10 mg tablet 10 mg PO DAILY 05/18/22 07/13/22 plecanatide 3 mg tablet (Trulance) 3 mg PO DAILY 05/18/22 07/13/22 ibuprofen 800 mg tablet (IBU) 800 mg PO Q8H PRN 06/10/22 07/13/22 prednisone 50 mg tablet 50 mg PO DAILY #4 tabs 07/13/22 Previous Rx's Medication Instructions Recorded epinephrine 0.3 mg/0.3 mL 0.3 mg (0.3 mL) IM Q5-15M PRN 07/09/20 injection, auto-injector anaphylaxis #2 ea prednisone 50 mg tablet 50 mg PO DAILY #4 tabs 07/13/22 Allergies Allergy/AdvReac Type Severity Reaction Status Date / Time bee venom protein (honey bee) Allergy Intermediate localized Verified 05/21/22 11:00 swelling/infection insect venom Allergy Unknown Verified 06/10/22 15:04 mold Allergy Unknown Verified 06/10/22 15:04 ragweed pollen Allergy Unknown Verified 06/10/22 15:04 diphtheria,pertussis AdvReac Intermediate localized Verified 05/21/22 11:00 (acellular),te swelling [From Boostrix Tdap] and decreased mobility in arm cat and dog dander Allergy Unknown Uncoded 06/10/22 15:04 house dust Allergy Unknown Uncoded 06/10/22 15:04 seasonal Allergy Uncoded 05/21/22 11:00 General Stated Complaint: RespSymp ORAL: 3 Review of Systems <Helen Cano DO - Last Filed: 07/13/22 07:34> All systems reviewed & are unremarkable except as noted in HPI and below Constitutional Constitutional: Reports as per HPI, Denies chills and Denies fever(s) Eyes Eyes: Denies blurry vision ENT Ears, Nose, Mouth, and Throat: Denies dizziness, Reports sore throat and Denies throat swelling Cardiovascular Cardiovascular: Denies chest pain and Reports dyspnea Respiratory Respiratory: Denies cough and Reports dyspnea Gastrointestinal Gastrointestinal: Denies abdominal pain, Denies diarrhea and Denies vomiting Genitourinary Genitourinary: Denies hematuria and Denies dysuria Musculoskeletal Musculoskeletal: Denies back pain and Denies numbness Integumentary/Breasts Skin/Breast: Denies lesions and Denies rash Neurologic Neurologic: Denies dizziness, Denies localized weakness and Denies numbness Allergic/Immunologic Allergic/Immunologic: Denies throat swelling PFSH <Helen Cano DO - Last Filed: 07/13/22 07:34> All Active Problems (Updated 07/13/22 @ 07:56 by Claude Moulton DO) Torticollis (Acute) Fatigue (Acute) Arthralgia of temporomandibular joint (Acute) Encounter for screening for other viral diseases (Acute) Medical History (Updated 07/13/22 @ 07:56 by Claude Moulton DO) Allergic rhinitis Asthma Cervical intraepithelial neoplasia grade 2 Ectopic kidney IBS (irritable bowel syndrome) Overweight Post-COVID syndrome Temporomandibular joint disorder Surgical History (Updated 07/13/22 @ 06:58 by Helen Cano DO) H/O vaginal hysterectomy History of laparoscopy History of tonsillectomy and adenoidectomy History of tubal ligation Family History (Updated 06/10/22 @ 15:12 by Odalis Hernandez) Father Asthma Hypertension Mother COPD (chronic obstructive pulmonary disease) Sister Gestational diabetes Hypertension Social History (Updated 06/10/22 @ 15:13 by Odalis Hernandez) Smoking/Tobacco Use Status: Never Smoking risk assessment performed?: Yes Alcohol Intake: current Alcohol Intake frequency: holidays/special occasions only Drug use: Never Substance use type: does not use Do you feel safe at home: Yes Do you feel safe in your relationship?: Yes Exam <Helen Cano DO - Last Filed: 07/13/22 07:34> Const General: cooperative and no acute distress Orientation: alert, awake and oriented x3 HENMT Head: normal to inspection Ears: hearing grossly normal bilaterally, external ears normal and TM abnormal dull bilaterally and scarred bilaterally Face and sinus: normal facial exam Mouth: oral mucosae normal Throat: uvula midline, no peritonsillar masses and posterior oropharynx abnormal cobblestoning Eyes General: appearance normal, both eyes and all related structures Pupils: PERRL EOM: EOM intact bilaterally Neck Neck: normal visual inspection and No submandibular swelling Lymphatic: no lymphadenopathy noted Chest Chest: normal inspection of the chest and no tenderness Resp Effort & Inspection: normal respiratory effort and able to speak in complete sentences Auscultation: clear to auscultation bilaterally Cardio Rate: regular rate Rhythm: regular rhythm Skin General skin exam: no rashes or lesions noted Neuro General: patient alert, patient awake and patient oriented x3 Cognition: normal cognition Speech: speech normal Motor: muscle tone normal throughout Sensory Exam: no sensory deficits noted Extrem General: normal to inspection, full ROM, capillary refill normal, no calf tenderness bilaterally and no edema Psych Appearance: grossly normal Mental Status: mental status grossly normal Speech and Movement: speech and movement normal Affect: normal affect Course <Helen Cano, DO - Last Filed: 07/13/22 07:34> Vital Signs Vital signs: Vital Signs Temperature 98.2 F 07/13/22 06:09 Pulse 81 07/13/22 06:09 Respiratory Rate 22 07/13/22 06:09 Blood Pressure 124/64 07/13/22 06:09 Pulse Oximetry 98 07/13/22 06:09 Temperature 98.2 F 07/13/22 06:09 Temperature Source Oral 07/13/22 06:09 Pulse 81 07/13/22 06:09 Respiratory Rate 22 07/13/22 06:09 Respiratory Effort Non-Labored 07/13/22 06:12 Respiratory Depth Normal 07/13/22 06:12 Blood Pressure 124/64 07/13/22 06:09 Pulse Oximetry 98 07/13/22 06:09 Oxygen Delivery Method Room Air 07/13/22 06:09 Oxygen Flow Rate 0 07/13/22 06:09 Pain Level 0 07/13/22 06:09
--- NOTE | 2022-07-13 06:30 | DI.RAD_ITS ---
Exam(s) XR PORTABLE CHEST AP EXAM: XR PORTABLE CHEST AP CLINICAL HISTORY: cough, sob, r/o acute disease TECHNIQUE: 2D digital imaging was performed of the chest. One image was obtained. An AP view was ob tained. COMPARISON: No exams were available for comparison FINDINGS: MEDIASTINUM: Normal. HEART: Normal. PULMONARY VASCULATURE: Normal. LUNGS: Clear. PLEURAL SPACE: No pleural effusion or pneumothorax. BONE:Within normal limits for the patient's age. OTHER FINDINGS:Normal. IMPRESSION: No acute pulmonary findings. DATA REPOSITORY: RADIATION DOSE DELIVERED:
[2022-07-13] MEDS: Albuterol/Ipratropium 3 ML UPD VIAL UPD (07:03)
[2022-07-13] MEDS: Ibuprofen 600 MG TAB PO (07:03)
[2022-07-13] MEDS: Dexamethasone 10 MG/ML VIAL PO (07:03)
--- NOTE | 2022-07-13 07:09 | DI.VRAD_ITS ---
PROCEDURE INFORMATION: Exam: XR Chest Exam date and time: 07/13/2022 6:27 AM Age: 41 years old Clinical indication: Patient HX: Cough, SOB, R/O acute disease TECHNIQUE: Imaging protocol: Radiologic exam of the chest. Views: 1 view. COMPARISON: CR XR CHEST 2V PA LATERAL 05/21/2022 1:47 PM FINDINGS: Lungs: Unremarkable. No consolidation. Pleural spaces: Unremarkable. No pleural effusion. No pneumothorax. Heart/Mediastinum: Unremarkable. No cardiomegaly. Bones/joints: Unremarkable. IMPRESSION: No acute findings. Dictated and Authenticated by: Zoë Wyatt MD. Ordering:RUMA Cervantes MD
[2022-07-13 07:21] LABS: COVID-19 PCR Negative (Negative); Influenza A PCR Negative (Negative); Influenza B PCR Negative (Negative); RSV PCR Negative (Negative)
[2022-07-13 07:34] LABS: Source Nasopharynx
== END 2022-07-13 08:02 | disposition home or self-care (01) ==
PROVIDERS: Physician Assistant; Emergency Provider Student in an Organized Health Care Education/Training Program; PCP Nurse Practitioner Family
DX: Z11.59 Encounter for screening for other viral diseases (principal); J45.909 Unspecified asthma, uncomplicated; Z86.16 Personal history of COVID-19; Z20.822 Contact with and (suspected) exposure to COVID-19
CPT/HCPCS: 81025; 87637; 99283; 71045; 87081; 99284; J1100; J7620

== ENCOUNTER 2022-07-28 02:09 | Outpatient (CLI) | payer OTHER, MEDICAID, SELFPAY ==
[2022-07-28 11:19] LABS: Abs Immature Grans 0.04 10^3/uL (0.0-0.06); Absolute Basophil Count 0.05 10^3/uL (0.0-0.2); Absolute Eosinophil Count 0.15 10^3/uL (0.0-0.7); Absolute Lymphocyte Count 2.74 10^3/uL (1.2-3.4); Absolute Monocyte Count 0.54 10^3/uL (0.1-0.8); Basophils % 0.6; Eosinophils % 1.7; HCT 39.6 % (36.0-46.0); HGB 12.6 g/dL (11.2-15.7); Immature Grans % 0.4; Lymphocytes % 30.4; MCH 26.6 pg (27.0-33.0); MCHC 31.8 % (32.0-36.0); MCV 84 fL (80-95); MPV 8.2 fL (8.0-11.0); Neutrophils % 60.9; Platelet Count 362 10^3/uL (130-400); RBC 4.73 10^6/uL (3.93-5.22); RDW 13.2 % (11.7-14.6); RDW-SD 40.1 fL; WBC 9.02 10^3/uL (4.4-10.8)
[2022-07-28 12:04] LABS: TSH (W/Ref FT4) 1.21 uIU/mL (0.36-3.74)
[2022-07-29 09:09] LABS: IgE 231 IU/mL (<158)
[2022-07-29 10:03] LABS: IgA 127 mg/dL (85-499); IgG 970 mg/dL (610-1616); IgM 226 mg/dL (35-242)
== END 2022-07-28 02:10 | disposition home or self-care (01) ==
LOC: LBO 02:09
PROVIDERS: PCP Nurse Practitioner Family; Visit Provider Student in an Organized Health Care Education/Training Program
DX: J45.909 Unspecified asthma, uncomplicated (principal)
CPT/HCPCS: 36415; 82533; 82784; 82785; 82787; 84443; 85025

== ENCOUNTER 2022-07-28 02:16 | Outpatient (CLI) | payer OTHER, MEDICAID, SELFPAY ==
[2022-07-28] MEDS: Albuterol HFA 18 GM 200 PUFF INH IH (11:04)
[2022-07-28] MEDS: Inhaler, Assist Device 1 EACH MC (11:04)
--- NOTE | 2022-07-28 12:18 | W.PFT ---
Date of service: 07/28/22 Time of Service: 09:59 Pulmonary Function Test Result Requesting Provider Theresa Indications: Asthma Interpretation Spirometry: There is no airflow limitation. There is no significant bronchodilator response. Lung Volumes: Normal lung volumes Diffusion Capacity: Normal diffusion Airway Pressure: Normal resistance Impression Normal pulmonary function testing Clinical Correlation therefore is recommended.
== END 2022-07-28 02:17 | disposition home or self-care (01) ==
LOC: RT 02:16
PROVIDERS: PCP Nurse Practitioner Family; Visit Provider Student in an Organized Health Care Education/Training Program
DX: J45.909 Unspecified asthma, uncomplicated (principal)
CPT/HCPCS: 94060; 94726; 94729

== ENCOUNTER 2022-08-13 02:30 | Outpatient (RCR) | payer OTHER, MEDICAID, SELFPAY ==
[2022-08-13] MEDS: Normal Saline Flush 10 ML SYR IVP (07:13)
[2022-08-13] MEDS: Cosyntropin 0.25 MG VIAL IV (07:13)
[2022-08-13 18:14] LABS: Cortisol (Baseline) 12 ug/dL (4-23)
[2022-08-14 18:39] LABS: Adrenocorticotropic Hormone, P 17 pg/mL
== END 2022-09-04 23:59 | disposition home or self-care (01) ==
LOC: INF 02:30
PROVIDERS: PCP Nurse Practitioner Family; Visit Provider Student in an Organized Health Care Education/Training Program
DX: E27.49 Other adrenocortical insufficiency (principal)
CPT/HCPCS: 36415; 80400; 87206; 96374; 82024; 82088; J0834

== ENCOUNTER 2022-11-05 08:40 | Emergency (ER) | payer OTHER, MEDICAID, SELFPAY ==
[2022-11-05 08:51] VITALS: BP 117/78; PULSE 78; RESP 14; TEMP 36.8; O2SAT 100
--- NOTE | 2022-11-05 09:30 | RT.EKG_ITS ---
APPROVED REPORT Exam: Resting ECG Reason for Exam: synocpe Patient Location: E HR:67 bpm ECG Measurements Heart Rate 67 AXIS AZ 159 P -4 QRSd 75 QRS 54 QT 404 T 37 QTc 426 Conclusion Sinus rhythm...normal P axis, V-rate 60- 99 NSR
--- NOTE | 2022-11-05 09:34 | W.ED.GENAD ---
Discharge Plan Disposition Patient Disposition: Home Discharge Details Clinical Impression: Syncope, Acute shoulder pain Primary Care Provider: Jayesh Helms ED Provider: Taran Dang Home Meds and New Rx's Prescriptions: New oxycodone-acetaminophen [Percocet] 5-325 mg tablet 1 tab PO TID PRN (Reason: pain) Qty: 7 0RF Continued Xolair 150 mg/mL syringe 225 mg subcut Q2W Qty: 1 12RF triamcinolone acetonide 0.5 % cream 1 applic topical DAILY benzonatate 200 mg capsule 200 mg PO TID PRN budesonide 0.5 mg/2 mL suspension for nebulization 0.25 mg inhalation BID ipratropium-albuterol 0.5 mg-3 mg(2.5 mg base)/3 mL solution for nebulization 3 ml inhalation BID PRN albuterol sulfate 90 mcg/actuation HFA aerosol inhaler 2 puff inhalation Q6H PRN budesonide-formoterol [Symbicort] 80-4.5 mcg/actuation HFA aerosol inhaler 2 puff inhalation BID Qty: 3 12RF Rx Instructions: Take 2 puff BID and 1 puff as needed for shortness of breath. Maximum 12 puffs/day. Rinse mouth after use. multivitamin Tablet 1 tab PO DAILY epinephrine 0.3 mg/0.3 mL auto-injector 0.3 mg IM Q5-15M PRN (Reason: anaphylaxis) Qty: 2 0RF Rx Instructions: do not exceed 3 doses per episode ibuprofen [IBU] 800 mg tablet 800 mg PO Q8H PRN montelukast 10 mg tablet 10 mg PO DAILY Patient Comments: TAKE 1 TABLET BY MOUTH ONCE DAILY. loratadine 10 mg Tablet 10 mg PO DAILY fluticasone propionate 50 mcg/actuation spray,suspension 2 spray INTRANASAL BID Patient Comments: INSTILL 1 SPRAY IN EACH NOSTRIL DAILY Trulance 3 mg tablet 3 mg PO DAILY PRN Patient Comments: TAKE 1 TABLET BY MOUTH ONCE DAILY Medical Decision Making 42 year old female with injury to R shoulder last night, point tender over AC, suspect souce of issue, but had neg xrays at [facility] yesterday. Syncope in the middle of night, dizzy/lightheaded. Work-up without any acute findings, suspect vagal. Will dc home to fu with ortho as discussed, with give rx for pain meds to use prn if OTC meds not helping, and f/u with pcp to discuss her syncope. HPI General Date/Time Provider Initiated Documentation: 11/05/22 09:17. HPI Narrative: 42 year old female presents to the ED with c/o syncope last night. She says that around 7 or 8 last night her daughter was showing a wrestling move to a friend, using pt as test subject, and she ended up falling on her shoulder. She went to [facility] ED last night, had xrays that were neg, told might have a sprain and to f/u with ortho, which she plans on calling later today. But, she says that she got up to use the bathroom in the middle of the night, and after she had finished she felt light headed and passed out. She found herself on the floor, says she was dizzy again when she tried to get to bed, but was able to lay down without issue. This morning, she c/o continued pain. No lightheadedness or feelings of passing out this am. She has her arm in a sling from ED last night. She denies any cp/sob, no palpitations, no abd pain. No n/v/d. Related Data Home Medications Medication Instructions Recorded Confirmed montelukast 10 mg tablet 10 mg PO DAILY 07/09/20 08/26/22 fluticasone propionate 50 2 spray intranasal BID 05/18/22 08/26/22 mcg/actuation nasal spray,suspension loratadine 10 mg tablet 10 mg PO DAILY 05/18/22 08/26/22 ibuprofen 800 mg tablet (IBU) 800 mg PO Q8H PRN 06/10/22 08/26/22 albuterol sulfate 90 mcg/actuation 2 puff inhalation Q6H PRN 07/15/22 08/26/22 aerosol inhaler benzonatate 200 mg capsule 200 mg PO TID PRN 07/15/22 08/26/22 budesonide 0.5 mg/2 mL suspension 0.25 mg inhalation BID 07/15/22 08/26/22 for nebulization ipratropium 0.5 mg-albuterol 3 mg 3 ml inhalation BID PRN 07/15/22 08/26/22 (2.5 mg base)/3 mL nebulization soln budesonide-formoterol HFA 80 2 puff inhalation BID #3 units 07/16/22 08/26/22 mcg-4.5 mcg/actuation aerosol inhaler (Symbicort) omalizumab 150 mg/mL subcutaneous 225 mg (1.5 mL) subcut Q2W #1 mL 08/27/22 08/27/22 syringe (Xolair) epinephrine 0.3 mg/0.3 mL 0.3 mg (0.3 mL) IM Q5-15M PRN 10/14/22 10/14/22 injection, auto-injector anaphylaxis #2 ea multivitamin 1 tab PO DAILY 10/14/22 plecanatide 3 mg tablet (Trulance) 3 mg PO DAILY PRN 10/14/22 triamcinolone acetonide 0.5 % 1 applic topical DAILY 10/28/22 topical cream oxycodone-acetaminophen 5 mg-325 1 tab PO TID PRN pain #7 tabs 11/05/22 mg tablet (Percocet) Previous Rx's Medication Instructions Recorded budesonide-formoterol HFA 80 2 puff inhalation BID #3 units 07/16/22 mcg-4.5 mcg/actuation aerosol inhaler (Symbicort) omalizumab 150 mg/mL subcutaneous 225 mg (1.5 mL) subcut Q2W #1 mL 08/27/22 syringe (Xolair) epinephrine 0.3 mg/0.3 mL 0.3 mg (0.3 mL) IM Q5-15M PRN 10/14/22 injection, auto-injector anaphylaxis #2 ea oxycodone-acetaminophen 5 mg-325 1 tab PO TID PRN pain #7 tabs 11/05/22 mg tablet (Percocet) Allergies Allergy/AdvReac Type Severity Reaction Status Date / Time bee venom protein (honey bee) Allergy Intermediate localized Verified 10/28/22 08:23 swelling/infection insect venom Allergy Unknown Verified 10/28/22 08:23 mold Allergy Unknown Verified 10/28/22 08:23 ragweed pollen Allergy Unknown Verified 10/28/22 08:23 diphtheria,pertussis AdvReac Intermediate localized Verified 10/28/22 08:23 (acellular),te swelling [From Boostrix Tdap] and decreased mobility in arm cat and dog dander Allergy Unknown Uncoded 10/28/22 08:23 house dust Allergy Unknown Uncoded 10/28/22 08:23 seasonal Allergy Uncoded 10/28/22 08:23 horses AdvReac Severe Other (See Uncoded 10/28/22 08:23 Comment) General Stated Complaint: Orthopedic ORAL: 4 Review of Systems Card Details: No cp, +syncope Resp Details: neg sob GI Details: neg abd pain, neg n/v/d Musc Details: +acute injury Skin Details: No rash PFSH All Active Problems (Updated 11/05/22 @ 10:52 by Taran Dang MD) Syncope (Chronic) Acute shoulder pain (Acute) Allergic asthma (Acute) Decreased cortisol level (Acute) Post-acute sequelae of COVID-19 (PASC) (Acute) Torticollis (Acute) Fatigue (Acute) Arthralgia of temporomandibular joint (Acute) Encounter for screening for other viral diseases (Acute) Medical History (Updated 11/05/22 @ 10:52 by Taran Dang MD) Allergic rhinitis Cervical intraepithelial neoplasia grade 2 Ectopic kidney IBS (irritable bowel syndrome) Overweight Post-COVID syndrome Temporomandibular joint disorder Surgical History (Updated 07/13/22 @ 06:58 by Helen Cano DO) H/O vaginal hysterectomy History of laparoscopy History of tonsillectomy and adenoidectomy History of tubal ligation Family History (Updated 06/10/22 @ 15:12 by Odalis Hernandez) Father Asthma Hypertension Mother COPD (chronic obstructive pulmonary disease) Sister Gestational diabetes Hypertension Social History (Updated 06/10/22 @ 15:13 by Odalis Hernandez) Smoking/Tobacco Use Status: Never Smoking risk assessment performed?: Yes Alcohol Intake: current Alcohol Intake frequency: holidays/special occasions only Drug use: Never Substance use type: does not use Do you feel safe at home: Yes Do you feel safe in your relationship?: Yes Exam Const General: cooperative, healthy appearing and comfortable Resp Auscultation: clear to auscultation bilaterally Cardio Rate: regular rate Rhythm: regular rhythm Extrem Other: R UE in sling. Point tender over AC joint, no obvious deformity, diffuse swelling. Limited ROM, unable to extend arm over head, even with assistance of opposite hand, NVI. Non tender over post proximal humerus Course 42 yo female with fall and R shoulder injury last night, neg xrays at other hospital, syncope in night. Discussed that repeat xrays of her shoulder not likely to be helpful, but reasonable to do work-up for her syncope. By hx, suspect vasovagal, asymptomatic currently, but will check ekg, cxr, labs. She plan to f/u with ortho on her own. Vital Signs Vital signs: Vital Signs Temperature 36.8 C 11/05/22 08:51 Pulse 78 11/05/22 08:51 Respiratory Rate 14 11/05/22 08:51 Blood Pressure 117/78 11/05/22 08:51 Pulse Oximetry 100 11/05/22 08:51 Temperature 36.8 C 11/05/22 08:51 Temperature Source Oral 11/05/22 08:51 Pulse 78 11/05/22 08:51 Respiratory Rate 14 11/05/22 08:51 Respiratory Effort Normal 11/05/22 09:03 Blood Pressure 117/78 11/05/22 08:51 Blood Pressure Position Sitting 11/05/22 08:51 Pulse Oximetry 100 11/05/22 08:51 Oxygen Delivery Method Room Air 11/05/22 08:51 Oxygen Flow Rate 0 11/05/22 08:51 Pain Level 9 11/05/22 08:51 Comment tylenol at 7am today 11/05/22 08:51
--- NOTE | 2022-11-05 09:57 | DI.RAD_ITS ---
Exam(s) XR PORTABLE CHEST AP EXAM: XR PORTABLE CHEST AP CLINICAL HISTORY: syncope. TECHNIQUE: 2D digital imaging was performed. COMPARISON: CR,XR XR PORTABLE CHEST AP from 07/13/2022 FINDINGS: Single AP portable view. Heart size is upper normal. The mediastinum is not widened. Lungs are clear. No infiltrates nor obvious pleural effusions. IMPRESSION: No acute pulmonary findings on this single AP portable view of the chest. DATA REPOSITORY: RADIATION DOSE DELIVERED:
[2022-11-05 10:06] VITALS: BP 104/67; BP 108/77; BP 110/73; PULSE 67; PULSE 68; PULSE 69
[2022-11-05 10:06] LABS: HCT 37.8 % (36.0-46.0); HGB 12.2 g/dL (11.2-15.7); MCH 27.5 pg (27.0-33.0); MCHC 32.3 % (32.0-36.0); MCV 85 fL (80-95); MPV 8.3 fL (8.0-11.0); Platelet Count 414 10^3/uL (130-400); RBC 4.44 10^6/uL (3.93-5.22); RDW 13.5 % (11.7-14.6); RDW-SD 42.2 fL; WBC 7.96 10^3/uL (4.4-10.8)
[2022-11-05 10:25] LABS: ALT 22 U/L (14-59); AST 12 U/L (15-37); Albumin 3.4 g/dL (3.4-5.0); Alkaline Phosphatase 66 U/L (46-116); Anion Gap 4.7 mmol/L (3-11); BUN 12 mg/dL (7-18); Bilirubin, Total 0.3 mg/dL (0.2-1.0); CO2 30.3 mmol/L (21.0-32.0); CREATININE 0.8 mg/dL (0.55-1.02); Calcium 9.1 mg/dL (8.5-10.1); Chloride 105 mmol/L (98-107); Estimated GFR 95.46 (mL/min/1.73m2); Glucose 92 mg/dL (74-106); Potassium 4.1 mmol/L (3.5-5.1); Sodium 140 mmol/L (136-145); Total Protein 6.8 g/dL (6.4-8.2); Troponin I < 50 ng/L (<or=60)
[2022-11-05] MEDS: Ibuprofen 600 MG TAB PO (11:00)
[2022-11-05 11:30] VITALS: BP 114/74; PULSE 70; RESP 14; TEMP 36.6; O2SAT 100
== END 2022-11-05 11:34 | disposition home or self-care (01) ==
PROVIDERS: Emergency Provider Emergency Medicine; PCP Nurse Practitioner Family
DX: R55 Syncope and collapse (principal); M25.511 Pain in right shoulder
CPT/HCPCS: 36415; 80053; 85027; 93005; 99284; 71045; 84484; 93010

== ENCOUNTER → 2023-02-11 03:17 | Outpatient (CLI) | payer OTHER, SELFPAY ==
--- NOTE | 2023-02-11 12:50 | DI.MRI_ITS ---
Exam(s) MR UPPER JOINT RT WO EXAM: MR UPPER JOINT RT WO CLINICAL HISTORY: PAIN,slap lesion rt shoulder, [id number] TECHNIQUE: Multiplanar multisequence MRI of the shoulder was performed. COMPARISON: CR XR SHOULDER MIN 2V RT from 11/04/2022 CR XR PORTABLE CHEST AP from 11/05/2022 FINDINGS: MARROW:There is no evidence of fracture, Hill-Sachs deformity, nor ominous osseous lesions. ROTATOR CUFF MECHANISM: AC JOINT/ACROMIUM: There some degenerative changes in the AC joint. No prominent downgoing osteophyt es but there is hypertrophied undersurface tissue and capsular thickening.. There is no evidence of os acromiale. Supraspinatus: This signal abnormality consistent with tendinitis of the supraspinatus tendon-rotator cuff tendon. More prominent signal abnormality is noted the most anterior aspect of the tendon cons istent with partial-thickness tearing at this level. There is a sliver of fluid in the overlying sub acromial bursa. No retraction. No muscle atrophy. Infraspinatus: Intact. No evidence of tear nor muscle atrophy. Teres Minor: Intact. No evidence of tear nor muscle atrophy. Subscapularis/anterior cuff: Intact. No abnormal signal at the level of the multipennate insertional fibers. No significant tear nor atrophy. BICEPS TENDON: There is significant attenuation of the biceps tendon within the intertubercular groov e consistent with tearing. Intra-articular aspect is also thin. There is no fluid in the tendon sheath. LABRUM: Mild increased signal noted in the superior labrum. Mild increased signal in posterior labru m. Anterior labrum appears intact. Anteroinferior labrum appears intact with no evidence of Bankart lesion. Inferior labrum intact. Inferior glenohumeral ligament is intact. GLENOHUMERAL JOINT: No joint effusion nor obvious loose intra-articular bodies. No chondral defects. No osteophytes. No degenerative subarticular cysts. QUADRILATERAL SPACE: No evidence of mass in the region of the axillary nerve and dorsal circumflex hu meral vessels. Visualized triceps muscle at this level appears unremarkable. IMPRESSION: 1. There is tendinitis signal in the supraspinatus tendon and what appears to be partial thickness te aring of the most anterior aspect of the tendon. Sliver of fluid in the subacromial bursa. No retra ction. No muscle atrophy. 2. Significant attenuation of the long head biceps tendon within the intertubercular groove and intra -articular aspect. Suspect chronic tearing 3. Mild signal abnormality in the superior and posterior labrum without prominent tearing. No eviden ce of paralabral cyst. 4. Degenerative changes in the AC joint. Minimal if any significant degenerative changes in the gle nohumeral joint. There is no glenohumeral joint effusion. No loose intra-articular bodies. DATA REPOSITORY:
== END ==
PROVIDERS: PCP Nurse Practitioner Family; Visit Provider Student in an Organized Health Care Education/Training Program
DX: S43.431A Superior glenoid labrum lesion of right shoulder, initial encounter (principal); M75.31 Calcific tendinitis of right shoulder; X58.XXXA Exposure to other specified factors, initial encounter
CPT/HCPCS: 73221

== ENCOUNTER 2023-02-11 04:28 | Outpatient (CLI) | payer OTHER, SELFPAY ==
[2023-02-12 21:21] LABS: Alternaria Tenuis IgE <0.10 kU/L (<0.70); Aspergillus Fumigatus IgE 0.19 kU/L (<0.70); Bermuda Grass IgE 0.21 kU/L (<0.70); Cladosporium IgE <0.10 kU/L (<0.70); Cottonwood IgE 1.38 kU/L (<0.70); D Farinae IgE 5.78 kU/L (<0.70); D Pteronyssinus IgE 4.64 kU/L (<0.70); Eastern Sycamore IgE 0.24 kU/L (<0.70); Elm IgE 2.47 kU/L (<0.70); Epicoccum purpurascens IgE <0.10 kU/L (<0.70); Fusarium moniliforme, IgE <0.10 kU/L (<0.70); Giant Ragweed IgE <0.10 kU/L (<0.70); Milk, IgE 0.36 kU/L (<0.70); Oak IgE 0.74 kU/L (<0.70); Penicillium chrysogenum IgE 0.19 kU/L (<0.70); Red Sorrel IgE <0.10 kU/L (<0.70); Rough Pigweed IgE <0.10 kU/L (<0.70); Silver Birch IgE 0.35 kU/L (<0.70); Stemphyllium IgE <0.10 kU/L (<0.70); Walnut Tree IgE 0.43 kU/L (<0.70)
[2023-02-12 21:42] LABS: Cat Epithelium IgE 5.18 kU/L (<0.70); Dog Dander IgE 50.1 kU/L (<0.70); Lamb's Quarter IgE 0.27 kU/L (<0.70); Short Ragweed IgE 0.15 kU/L (<0.70); Timothy Grass IgE <0.10 kU/L (<0.70); Wormwood IgE <0.10 kU/L (<0.70)
[2023-02-12 23:24] LABS: Cocklebur IgE 0.11 kU/L (<0.70)
[2023-02-16 15:47] LABS: CLASS 0; CLASS 0/1; Cedar Red IgE 0.13 kU/L (<0.35); Rhodotorula IgE <0.35 kU/L (<0.35)
== END 2023-02-11 04:29 | disposition home or self-care (01) ==
LOC: LBO 04:28
PROVIDERS: PCP Nurse Practitioner Family; Visit Provider Physician Assistant
DX: J45.909 Unspecified asthma, uncomplicated (principal)
CPT/HCPCS: 36415; 86003

== ENCOUNTER 2023-05-27 08:51 | Day surgery (SDC) | payer OTHER, SELFPAY ==
[2023-05-27] VITALS (12 sets, daily range): BP systolic 96–124; BP diastolic 53–72; PULSE 67–85; RESP 13–21; TEMP 36.3–36.9; O2SAT 98–100; BMI 28.3
--- NOTE | 2023-05-27 07:10 | PDOC.DSDIS_ITS ---
Date of service: 05/27/23 Time of Service: 13:00 Discharge Plan Disposition Patient Disposition: Home Condition: Stable Discharge Details Attending Provider: Dimitri Osullivan Primary Care Provider: Jayesh Helms Home Meds and New Rx's Prescriptions: New naproxen 250 mg tablet 250 - 500 mg PO BID PRN (Reason: Moderate pain) Qty: 40 0RF aspirin 81 mg tablet,delayed release (DR/EC) 81 mg PO DAILY 7 Days Qty: 7 0RF oxycodone 5 mg tablet 5 - 10 mg PO Q4H PRN (Reason: Moderate to severe pain) Qty: 18 0RF Continued triamcinolone acetonide 0.5 % cream 1 applic topical DAILY budesonide 0.5 mg/2 mL suspension for nebulization 0.25 mg inhalation BID ipratropium-albuterol 0.5 mg-3 mg(2.5 mg base)/3 mL solution for nebulization 3 ml inhalation BID PRN albuterol sulfate 90 mcg/actuation HFA aerosol inhaler 2 puff inhalation Q6H PRN budesonide-formoterol [Symbicort] 80-4.5 mcg/actuation HFA aerosol inhaler 2 puff inhalation BID Qty: 3 12RF Rx Instructions: Take 2 puff BID and 1 puff as needed for shortness of breath. Maximum 12 puf fs/day. Rinse mouth after use. multivitamin Tablet 1 tab PO DAILY epinephrine 0.3 mg/0.3 mL auto-injector 0.3 mg IM Q5-15M PRN (Reason: anaphylaxis) Qty: 2 0RF Rx Instructions: do not exceed 3 doses per episode ibuprofen [IBU] 800 mg tablet 800 mg PO Q8H PRN Xolair 150 mg/mL syringe 225 mg subcut Q2W Qty: 1 12RF montelukast 10 mg tablet 10 mg PO DAILY Patient Comments: TAKE 1 TABLET BY MOUTH ONCE DAILY. loratadine 10 mg Tablet 10 mg PO DAILY fluticasone propionate 50 mcg/actuation spray,suspension 2 spray INTRANASAL BID Patient Comments: INSTILL 1 SPRAY IN EACH NOSTRIL DAILY Trulance 3 mg tablet 3 mg PO DAILY PRN Patient Comments: TAKE 1 TABLET BY MOUTH ONCE DAILY Discharge Instructions Additional Instructions: Surgery: Right shoulder arthroscopy with extensive debridement, rotator cuff repair (bursal supraspinatus), subacromial decompression, and distal clavicle clavicle excision; No intra-articular biceps tendon. Activity: For 6 weeks, you should keep your arm at your side in a neutral position at all times except for physical therapy. Do not try to lift or raise your arm using your own muscles. You should use the sling whenever you are out of the house. You may have to adjust the abduction pillow or remove it for comfort. At home it is best to remove the sling and rest the arm on a pillow at your side or support the operative side with your other hand. You may allow the arm to dangle at your side. A physical therapy prescription will be sent electronically to begin in about 3 weeks. Prescriptions: Aspirin 81 mg take 1 daily to prevent a blood clot for 7 days Naproxen 250 mg take 1-2 every 12 hours with a meal as needed for moderate pain Oxycodone 5 mg take 1-2 every 4-6 hours as needed for severe pain You may use [id number] Tylenol (acetaminophen) as needed for mild pain. These pain medications may be taken all at once or in different combinations as needed. Also, recommend Colace (docusate) as a stool softener as surgery and pain medicine cause constipation. You may try [id number] diphenhydramine (Benadryl) 25-50 mg nightly as a sleep aid Dressings: Remove shoulder bandage after 3 days. Leave the sticky Steri-Strips in place until they fall off or remove them after you shower. Cover the incisions with Band-Aids or leave them open to air. You may shower after 5 days. Follow-up: 10-[address] Osullivan You may take off the leg compression stockings this evening at home. You may also leave them on a few days longer if you have a history of leg swelling or edema. Let us know right away if you develop any redness, drainage, fevers, chest pain, or trouble breathing. Do not drink alcohol or drive for at least 24 hours after anesthesia. Please call the office during business hours with any questions or concerns. Discharge Orders Discharge Orders: Discharge Order (Routine); Ordered 05/27/23 Ordered By: Mono Fletcher DS: Diagnosis Discharge Diagnosis (1) Separation of right acromioclavicular joint: Status: Acute (2) Traumatic tear of right rotator cuff: Status: Acute
--- NOTE | 2023-05-27 07:18 | W.PM.OP ---
Date of service: 05/27/23 Time of Service: 11:30 Operative Note Operative Note DATE OF PROCEDURE: 05/27/23 PRE-OP DIAGNOSIS: Right: 1. SLAP tear 2. LHB tendinopathy 3. Bursitis 4. AC joint pain POST-OP DIAGNOSIS: other Right: 1. No SLAP tear 2. Absence intra-articular biceps tendon 3. Partial-thickness bursal supraspinatus rotator cuff tear 4. AC joint pain PROCEDURE: Right: 1. Rotator cuff repair, CPT# 62461. This involved suture-only repair of bursal supraspinatus tearing. 2. Arthroscopic distal clavicle excision, CPT# 78207. This involved arthroscopically exposing the underside of the acromioclavicular joint, smoothing out bone spurs, and removing interposing tissue so there is nothing left engaging between the distal clavicle and acromion. 3. Extensive debridement, CPT# 88414. This involved using arthroscopic hand instruments, power instruments, and radiofrequency instruments to debride partial articular supraspinatus tendon tearing, debride small area of anterior rotator interval synovitis, partially release [facility] L anterior capsule, and lightly debride superior and posterior labrum. 4. Subacromial decompression with partial acromioplasty, CPT# 15950. This involved using arthroscopic power instruments and a radiofrequency wand to complete a bursectomy and smooth the undersurface of the acromion especially where it was prominent across from the distal clavicle. The office manager executive assistant was medically required in order to help assist in techniques above, which require positioning the arm, holding the arthroscope, and manipulating multiple instruments and sutures at the same time. This cannot be done without the help of an experienced office manager executive assistant. SURGEON: Dimitri Osullivan ROLL CONTOUR GRINDER: Mono Fletcher ANESTHESIA TYPE: Local By Surgeon, General LMA/ETT and Primary Nerve Block Refer to Anesthesia Record ESTIMATED BLOOD LOSS: 5 PATHOLOGY: none sent COMPLICATIONS: None Patient was transported to: PACU Patient's condition: stable Implants: Arthrex: SutureTape x2 Indications: The patient was diagnosed with the above conditions and appropriately indicated for surgical intervention. Please see complete medical record for details. Findings: Exam under anesthesia: Full range of motion, no glenohumeral shoulder instability. No significant distal clavicle instability either. Glenohumeral joint: Remarkably little inflammation. No SLAP tear. Mild posterior superior labral fraying. No apparent intra-articular biceps tendon with out appearance of any injury or proximal rupture. Intra-articular orifice bicipital groove did not appear inflamed. Question congenital absence intra-articular long head biceps. Intact subscapularis. Intact articular cartilage throughout. Mildly inflamed rotator interval anterior synovitis with possible partial tearing lateral aspect [facility] L. Minimal thickness moderately sized anterior to posterior with minimal articular footprint exposed partial articular supraspinatus tendon tearing. Intact articular infraspinatus. No loose bodies. Subacromial space: Mild bursitis. Largely intact and healthy appearing bursal supraspinatus infraspinatus with medial supraspinatus about 25-50% thickness longitudinal in line partial tearing. Mild acromion irregularity with impingement really only near the medial rotator cuff downsloping near the distal clavicle joint. Distal clavicle with possible increased vertical mobility, but no apparent horizontal instability. AC joint did give the appearance of prior traumatic injury although there is no significant arthritis or engaging bone there was scar tissue remnant and some interposed abnormal appearing tissue. Procedure Description: In the operating room, general anesthesia was induced. Bilateral shoulders were examined. The patient was positioned in the beachchair position. All bony prominences were well-padded. Preoperative antibiotics were administered. The shoulder was prepped and draped in the usual sterile fashion. The correct patient, procedure, and side of the procedure were all verified prior to incision. Starting through the posterior portal a standard complete diagnostic arthroscopy was performed of the glenohumeral joint including inspection of the long head of the biceps, anterior and superior labrum, subscapularis tendon, supraspinatus and infraspinatus tendons, and axillary recess. The glenoid and humeral head cartilage as well as the posterior labrum were inspected from an anterior viewing portal. Significant findings and interventions noted above including light debridement of anterior synovitis, small release partially of the [facility] L anteriorly, light debridement of the superior and posterior superior labrum. No apparent superior labral defect or intra-articular biceps as described above. The mechanical shaver and radiofrequency wand were used to meticulously debride the partial-thickness supraspinatus tear to more stable tissue margin without removing any intact healthy tissue.. Starting through the posterior portal, the arthroscope was directed into the subacromial space. A lateral 50 yard line lateral portal was omitted. A combination of power instruments and a radiofrequency ablator were used to debride bursitis that was really only present posteriorly and medially as well as expose and smooth bone spurring on the undersurface of the acromion especially near the margin of the AC joint. The coracoacromial ligament was partially released. The bursectomy was completed viewing anteriorly and working from posteriorly and the rotator cuff was thoroughly inspected with findings noted above. The anterior portal was redirected towards the undersurface of the AC joint. A shaver and electrocautery device were used to clear soft tissue from the undersurface of the AC joint. The distalmost bone of the distal clavicle was then lightly resected as it was not really engaging on the acromion and then smooth and ablated. The medial aspect of the acromion was resected as well as it was somewhat sloping downward at the inferior aspect of the distal clavicle and bursal cuff. Care was taken to alternate between working through the anterior portal and viewing through the anterior portal to ensure that proper amount of bone was removed and there was no engaging bone left behind especially superiorly. The bursal supraspinatus tear was somewhat medial and longitudinal in line with the fibers. Probing did reveal about 25% thickness and indirect probing with a switching stick may be slightly thicker to 50% but no more. It was medial and the remainder of the tendon laterally over the greater tuberosity bony footprint was healthy-appearing and intact. Decision was made to proceed with bursal repair. A 7 mm rigid cannula was inserted anteriorly. The crescent lasso was used to pass a suture tape circumferentially around the rotator cuff tear and then secured with SMC arthroscopic knot. This was repeated more laterally. The 2 repair sutures nicely reapposed and securely held the bursal supraspinatus tear in place. Defect was no longer visualized or able to be probed. The shoulder was drained of arthroscopic fluid. All portal sites were copiously irrigated. These incisions were closed using 3-0 Monocryl in a buried fashion and then covered with Mastisol, Steri-Strips, Xeroform, dry gauze, and ABDs. The dressings were covered and secured with Medipore tape. The operative extremity was placed into a sling for immobilization. The patient awoke from anesthesia without complication and was transferred to the recovery room in a stable condition.
[2023-05-27] MEDS: Lactated Ringers 1,000 ML 30 ML IV (10:02)
--- NOTE | 2023-05-27 10:14 | W.ANESPRE ---
General Info Date of Service Date Performed: 05/27/23 Height: 5 ft 2 in Weight: 70.2 kg Body Mass Index (BMI): 28.3 Surgical Procedure: Operation Date: 05/27/23 11:10 Proposed Procedure Side Surgeon p Shoulder Possible Rotator Cuff Arthroscopic w/Extensive Debridement, Biceps Tenodesis, Subacromial Decompression, Distal Clavicle Excision Right Dimitri Osullivan MD Meds Allergies and Home Medications Allergies Allergy/AdvReac Type Severity Reaction Status Date / Time bee venom protein (honey bee) Allergy Intermediate localized Verified 05/27/23 09:10 swelling/infection gluten Allergy Intermediate Verified 05/27/23 09:10 wheat Allergy Intermediate Verified 05/27/23 09:10 insect venom Allergy Unknown Verified 05/27/23 09:10 mold Allergy Unknown Verified 05/27/23 09:10 ragweed pollen Allergy Unknown Verified 05/27/23 09:10 diphtheria,pertussis AdvReac Intermediate localized Verified 05/27/23 09:10 (acellular),te swelling [From Boostrix Tdap] and decreased mobility in arm Home Medication Medication Instructions Recorded montelukast 10 mg tablet 10 mg PO DAILY 07/09/20 fluticasone propionate 50 2 spray intranasal BID 05/18/22 mcg/actuation nasal spray,suspension loratadine 10 mg tablet 10 mg PO DAILY 05/18/22 ibuprofen 800 mg tablet (IBU) 800 mg PO Q8H PRN 06/10/22 albuterol sulfate 90 mcg/actuation 2 puff inhalation Q6H PRN 07/15/22 aerosol inhaler budesonide 0.5 mg/2 mL suspension 0.25 mg inhalation BID 07/15/22 for nebulization ipratropium 0.5 mg-albuterol 3 mg 3 ml inhalation BID PRN 07/15/22 (2.5 mg base)/3 mL nebulization soln budesonide-formoterol HFA 80 2 puff inhalation BID #3 units 07/16/22 mcg-4.5 mcg/actuation aerosol inhaler (Symbicort) epinephrine 0.3 mg/0.3 mL 0.3 mg (0.3 mL) IM Q5-15M PRN 10/14/22 injection, auto-injector anaphylaxis #2 ea multivitamin 1 tab PO DAILY 10/14/22 plecanatide 3 mg tablet (Trulance) 3 mg PO DAILY PRN 10/14/22 triamcinolone acetonide 0.5 % 1 applic topical DAILY 10/28/22 topical cream omalizumab 150 mg/mL subcutaneous 225 mg (1.5 mL) subcut Q2W #1 mL 12/01/22 syringe (Xolair) aspirin 81 mg tablet,delayed 81 mg PO DAILY Prevent blood clot 05/27/23 release 7 days #7 tabs naproxen 250 mg tablet 250 - 500 mg (1 - 2 x 250 mg) PO 05/27/23 BID PRN Moderate pain #40 tabs oxycodone 5 mg tablet 5 - 10 mg (1 - 2 x 5 mg) PO Q4H 05/27/23 PRN Moderate to severe pain #18 tabs Current Visit Medications: Current Medications Generic Name Dose Route Start Last Admin Trade Name Freq PRN Reason Stop Dose Admin Ringer's Solution 1,000 mls @ 30 mls/hr 05/27/23 06:00 05/27/23 10:02 IV 06/25/23 23:59 30 mls/hr INFUSION GRIFFIN Administration Cefazolin Sodium/Dextrose 2 gm in 50 mls @ 100 mls/hr 05/27/23 06:00 Ancef Duplex IVPB 05/27/23 16:00 PREOP GRIFFIN IV Miscellaneous Supplies 1 each 05/27/23 06:00 Iv Access IV 06/25/23 23:59 DIRECTED GRIFFIN Oxycodone HCl 0 mg 05/27/23 07:09 Oxycodone 5 Mg Tab PO 06/26/23 07:08 Q3H PRN PRN Pain Sodium Chloride 0 ml 05/27/23 06:00 Normal Saline Flush 10 Ml Syr IV 06/25/23 23:59 PRN PRN Sodium Chloride 0 ml 05/27/23 06:00 Normal Saline 10 Ml Vial IJ 06/25/23 23:59 DIRECTED PRN Sterile Water 0 ml 05/27/23 06:00 Water,Injection,Sterile 10 Ml Vial IJ 06/25/23 23:59 DIRECTED PRN PFSH Active Problems Active Problems: Problem Status Onset Code Severe asthma J45.909 SLAP lesion of right shoulder S43.431A Separation of right acromioclavicular joint S43.101A Allergic asthma J45.909 Decreased cortisol level E27.49 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 states she does not wake up well from anesthesia Surgical History Surgical History Hx of hernia repair History of tonsillectomy and adenoidectomy History of tubal ligation H/O vaginal hysterectomy History of laparoscopy Tobacco Smoking/Tobacco Use Status: Never Alcohol Alcohol Intake: current Alcohol intake frequency: holidays/special occasions only Substance Use Substance use: Never Substance use type: does not use Vital Signs and Lab Results Vital Signs Most Recent Vital Signs in EMR: Most Recent Vital Signs Temp Pulse Resp BP Pulse Ox 36.7 C 71 18 122/63 100 05/27/23 09:59 05/27/23 09:59 05/27/23 09:59 05/27/23 09:59 05/27/23 09:59 Lab Results Blood Type / Crossmatch: No Data to Display Complete Blood Count: No Data to Display Complete Metabolic Panel: No Data to Display Liver Function Panel: No Data to Display Coagulation Panel: No Data to Display Cardiac Panel: No Data to Display Arterial Blood Gas: No Data to Display Venous Blood Gas: No Data to Display Pancreas Panel: No Data to Display Thyroid Panel: No Data to Display Infectious Disease: No Data to Display Blood Cultures: No Data to Display Toxicology Panel: No Data to Display Panel: No Data to Display Imaging and Studies Imaging and Studies Study information below may be from another EMR and interpreted by another provider. Please see original notes in EMR for more complete details. EKG Summary: Conclusion Sinus rhythm...normal P axis, V-rate 60- 99 NSR 11/05/22 Pulmonary Function Summary: Pulmonary Function Test Result Requesting Provider Theresa Indications: Asthma Interpretation Spirometry: There is no airflow limitation. There is no significant bronchodilator response. Lung Volumes: Normal lung volumes Diffusion Capacity: Normal diffusion Airway Pressure: Normal resistance Impression Normal pulmonary function testing Clinical Correlation therefore is recommended. 07/28/22 Anesthesia Assessment and Plan Anesthesia History Personal History: Delayed Emergence Family History: No Family History of Anesthesia Complications Exercise Tolerance Exercise Tolerance: Metabolic Equivalents>4 Pertinent Negatives Pertinent Negatives: No Major Cardiovascular Symptoms or Complaints, No Major Pulmonary Symptoms or Complaints and No History of CVA/TIA Cardiac & Pulmonary Exam Cardiac Exam: Normal S1/S2 Heart Sounds Pulmonary Exam: Clear Bilateral Breath Sounds Implantable Cardiac Device Does patient have a Pacemaker or an ICD?: No Airway Exam Known Difficult Airway: No Mallampati Class: 2 Mouth Opening: Narrow (< 3cm) (TMJ) Thyromental Distance: Greater than 3 cm Neck Range of Motion: Full ROM Neck Circumference: Normal Teeth Condition: Normal Dentition ASA Classification ASA Score: ASA 2 Emergency Case?: No NPO Status NPO Status: NPO Clears >2 hours, Solids >8 hours Status Status: History of Hysterectomy Anesthesia Plan Resuscitation Status: Full Code Anesthesia Technique: General Anesthesia Airway Planned: Endotracheal Tube Pain Management: Surgeon and patient request nerve block Monitors Used: Standard Monitors
[2023-05-27] MEDS: ceFAZolin 2 GM/50 ML BAG IVPB (11:51)
[2023-05-27] MEDS: EPINEPHrine 10 MG/10 ML ML (12:24)
--- NOTE | 2023-05-27 12:29 | W.ANESNERVE ---
Nerve Block Single Injection Procedure Date and Time Date Performed: 05/27/23 Procedure Start: 11:28 Location Where Procedure Performed Procedure Location: Day Surgery Unit Reason Performed: Postoperative Analgesia Requesting Provider: Dimitri Osullivan Timeout Performed Timeout Performed: Yes Monitoring Used ECG, Blood Pressure and SpO2 Sterility Sterility: Hand Hygiene, Surgical Cap, Surgical Mask, Sterile Gloves, Sterile Drape/Sheet and Chlorhexidine Sedation Given During Procedure Sedation Given (Indicate Dose Given): Versed IV Dose:: 2 mg Patient Mental Status Patient Mental Status: Sedate with meaningful communication Nerve Block 1st Nerve Block: Laterality: Right Block Type: Interscalene Ultrasound Image Saved?: Yes Needle / Catheter Used: 100mm SonoPlex II Local Anesthetic Bolus (Indicate Dose Given): Lidocaine used for local infiltration of skin, Injected in 3-5ml increments after negative blood aspiration, Bupivacaine 0.5% Dose:: 10 ml and Exparel Dose:: 10 ml Additives (Indicate Dose Given): None Ultrasound: Sterile probe cover and gel used Nerve Stimulator: Supplement to Ultrasound use, Expected parasthesia or motor response elicited and No twitch or parasthesia noted < 0.5 mA Paresthesia: Right (needle redirected and injection only when symptoms subsided) Paresthesia Duration: Transient Procedure Tolerated: No Complications and Patient tolerated well Procedure Outcome: Successful Performed By: Adenike Yee
[2023-05-27] MEDS: Bupivacaine 0.25% Pres-Free 30 ML VIAL (12:40)
--- NOTE | 2023-05-27 14:54 | W.ANESPOSTOP ---
Postoperative Evaluation Date, Time and Location Date Performed: 05/27/23 Time Performed: 14:54 Patient Location: Day Surgery Unit Vital Signs Most Recent Imported Vital Signs: Most Recent Vital Signs Temp Pulse Resp BP Pulse Ox 36.8 C 73 18 108/68 98 05/27/23 14:34 05/27/23 14:34 05/27/23 14:34 05/27/23 14:34 05/27/23 14:34 Pain Score Most Recent Pain Score: Most Recent Pain Score Pain Level 5 05/27/23 14:34 Assessment Mental Status: Awake (Alert & Oriented to Patient Baseline) Airway and Respiratory Function: Patent airway with normal (patient baseline) respiratory exam Cardiovascular Function: Hemodynamically Stable Hydration Status: Adequately Hydrated Nausea & Vomiting: No Nausea or Vomiting Pain: Pain is tolerable per patient (pain level 2/10) Peripheral Nerve Block: Regional nerve block not resolved at time of post operative discharge
== END 2023-05-27 16:14 | disposition home or self-care (01) ==
LOC: SUR 08:51
PROVIDERS: PCP Nurse Practitioner Family; Visit Provider Student in an Organized Health Care Education/Training Program
PROC: (CPT 29827; principal; 2023-05-27 11:00)
DX: S43.101A Unspecified dislocation of right acromioclavicular joint, initial encounter (principal); S46.011A Strain of muscle(s) and tendon(s) of the rotator cuff of right shoulder, initial encounter; X58.XXXA Exposure to other specified factors, initial encounter
CPT/HCPCS: 29827; 29824; 29823; 29826; 76942; J0690; J1100; J1885; J2001; J2250; J2371; J2405; J2704

== ENCOUNTER 2023-12-03 01:21 | Outpatient (RCR) | payer MEDICAID, SELFPAY | END 2023-12-05 23:59 | disposition home or self-care (01) | LOC: INF 01:21 | PROVIDERS: PCP Nurse Practitioner Family; Visit Provider Family Medicine | DX: J45.909 Unspecified asthma, uncomplicated (principal) | CPT/HCPCS: 96372; J2357 ==

== ENCOUNTER 2023-12-29 01:56 | Outpatient (RCR) | payer MEDICAID, SELFPAY | END 2024-01-05 23:59 | disposition home or self-care (01) | LOC: INF 01:56 | PROVIDERS: PCP Nurse Practitioner Family; Visit Provider Family Medicine | DX: J45.909 Unspecified asthma, uncomplicated (principal) | CPT/HCPCS: 96372; J2357 ==

== ENCOUNTER 2024-01-27 03:20 | Outpatient (RCR) | payer MEDICAID, SELFPAY | END 2024-02-05 23:59 | disposition home or self-care (01) | LOC: INF 03:20 | PROVIDERS: PCP Nurse Practitioner Family; Visit Provider Family Medicine | DX: J45.909 Unspecified asthma, uncomplicated (principal) | CPT/HCPCS: 96372; J2357 ==

== ENCOUNTER 2024-02-25 00:08 | Outpatient (CLI) | payer BC, SELFPAY ==
--- NOTE | 2024-02-25 06:15 | DI.MRI_ITS ---
Exam(s) MR UPPER JOINT RT WO EXAM: MR UPPER JOINT RT WO CLINICAL HISTORY: reinjury of her prior rotator cuff repair,tratumatic tear,s46.011a. TECHNIQUE: Multiplanar multisequence MRI was performed. COMPARISON: Plain films 04 Nov 2022. MRI 11 February 2023 FINDINGS: BONES: There is no fracture or contusion pattern. JOINTS:The acromioclavicular joint contains fluid. Minimal inferior spurring. The glenohumeral join t shows a small amount of fluid. TENDONS: Supraspinatus: Abnormal thickening throughout. Focal full-thickness tear with minimal retraction see n at the level of the tip of the acromion. Infraspinatus: Unremarkable. Subscapularis: Unremarkable. Teres Minor: Unremarkable. Biceps and [place]: Biceps tendon again noted to be extremely thinned where visualized. MUSCLES: Unremarkable. GLENOID LABRUM: Unremarkable on this noncontrast examination. SOFT TISSUES: Unremarkable. OTHER: Subacromial and subdeltoid bursae shows a small amount of fluid. Small amount of fluid in montero bcoracoid bursa IMPRESSION: Severe supraspinatus tendinosis. Superimposed focal full-thickness tear. No change in appearance of the biceps tendon which appears quite thin where visualized. DATA REPOSITORY:
== END 2024-02-25 00:28 ==
PROVIDERS: PCP Nurse Practitioner Family; Visit Provider Student in an Organized Health Care Education/Training Program
DX: S46.011D Strain of muscle(s) and tendon(s) of the rotator cuff of right shoulder, subsequent encounter (principal); X58.XXXD Exposure to other specified factors, subsequent encounter
CPT/HCPCS: 73221